=== PATIENT | female | born 2005 | race African-American/Black ===

== ENCOUNTER 2025-08-29 16:24 | Emergency (ER) | payer MEDICAID ==
[~2025-08-29] VITALS: Ht 149.9 cm; Wt 49.9 kg
[2025-08-29 16:45] VITALS: BP 117/75; TEMP 98.3; O2SAT 99
== END 2025-08-29 18:00 | disposition left against medical advice (07) ==
LOC: ER 16:30
DX: A64 Unspecified sexually transmitted disease (principal); Z53.21 Procedure and treatment not carried out due to patient leaving prior to being seen by health care provider